=== PATIENT | female | born 1960 | race Caucasian/White ===

== ENCOUNTER → 2022-04-26 | Outpatient (CLI) | payer OTHER | LOC: M RAD 14:37 | PROVIDERS: ATTEND Nurse Practitioner Women's Health | DX: R32 Unspecified urinary incontinence (principal); Z87.440 Personal history of urinary (tract) infections ==

== ENCOUNTER 2023-06-20 16:58 | Inpatient (IN) | payer OTHER ==
[~2023-06-20] VITALS: Ht 160 cm; Wt 75.3 kg
[2023-06-20 18:14] VITALS: BP 142/74; TEMP 98; O2SAT 99
[2023-06-20] MEDS ORDERED: LIDOCAINE 2% 5ML JELLY UROJET TOP ONE (18:20)
[2023-06-20] MEDS ORDERED: NS 500 ML IV ONE (18:20)
[2023-06-20 18:23] LABS: BASO # 0.1 10^3/uL (0.0-0.2); BASO % 0.7 % (0.0-1.0); EOS # 0.4 10^3/uL (0.0-0.5); EOS % 4.3 % (0.0-3.0); HEMOGLOBIN 8.3 g/dl (12.0-15.5); LYMPH # 1.9 10^3/uL (1.5-5.0); LYMPH % 19.9 % (24.0-44.0); MEAN CORPUSCULAR HEMOGLOBIN 29.4 pg (27.0-33.0); MEAN CORPUSCULAR HGB CONC 31.9 g/dl (32.0-36.5); MEAN CORPUSCULAR VOLUME 92.2 fl (80.0-96.0); MONO # 0.5 10^3/uL (0.0-0.8); MONO % 5.4 % (2.0-8.0); NEUTROPHILS # 6.5 10^3/uL (1.5-8.5); NEUTROPHILS % 69.4 % (36.0-66.0); PLATELET COUNT, AUTOMATED 102 10^3/uL (150-450); RED BLOOD COUNT 2.82 10^6/uL (4.00-5.40); WHITE BLOOD COUNT 9.4 10^3/uL (4.0-10.0)
[2023-06-20 18:41] LABS: INR 1.27; PROTHROMBIN TIME 15.5 SECONDS (12.5-14.5)
[2023-06-20 18:42] LABS: PARTIAL THROMBOPLASTIN TIME 29.3 SECONDS (24.8-34.2)
[2023-06-20 18:46] LABS: ALBUMIN 4.1 G/DL (3.2-5.2); ALKALINE PHOSPHATASE 43 U/L (46-116); ALT/SGPT 33 U/L (7.0-40); AST/SGOT 20 U/L (<34); BILIRUBIN,DIRECT 0.1 MG/DL (<0.4); BILIRUBIN,TOTAL 0.3 MG/DL (0.3-1.2); BLOOD UREA NITROGEN 142 MG/DL (9-23); CALCIUM LEVEL 9.5 MG/DL (8.3-10.6); CARBON DIOXIDE LEVEL 25 MMOL/L (20-31); CHLORIDE LEVEL 101 MMOL/L (98-107); CK-MB VALUE MASS < 1.0 NG/ML (<3.6); CPK CREATINE PHOSPHOKINASE 53 U/L (34-145); CREATININE FOR GFR 3.11 MG/DL (0.55-1.30); GLOMERULAR FILTRATION RATE 16.2 (>45); GLUCOSE, FASTING 156 MG/DL (74-106); MB/CK RELATIVE INDEX 1.88 (< OR =4); POTASSIUM SERUM 3.8 MMOL/L (3.5-5.1); SODIUM LEVEL 135 MMOL/L (136-145)
[2023-06-20] MEDS ORDERED: HYDR-3911 PO (19:21)
[2023-06-20] MEDS ORDERED: ASPI-226 PO (19:21)
[2023-06-20] MEDS ORDERED: GABA-1171 PO (19:21)
[2023-06-20] MEDS ORDERED: FERR325T19 PO (19:21)
[2023-06-20] MEDS ORDERED: CARV12.5 PO (19:21)
[2023-06-20] MEDS ORDERED: VALS1TAB66 PO (19:21)
[2023-06-20] MEDS ORDERED: DOXA1TAB40 PO (19:21)
[2023-06-20] MEDS ORDERED: ATOR80TA59 PO (19:21)
[2023-06-20] MEDS ORDERED: FURO40TA2 PO (19:21)
[2023-06-20] MEDS ORDERED: PANT40TA29 PO (19:21)
[2023-06-20] MEDS ORDERED: BASA100I SQ (19:21)
[2023-06-20] MEDS ORDERED: INSUHUMDS SC (19:23)
[2023-06-20 19:34] LABS: CK-MB VALUE MASS < 1.0 NG/ML (<3.6)
[2023-06-20 19:35] LABS: CPK CREATINE PHOSPHOKINASE 56 U/L (34-145); MB/CK RELATIVE INDEX 1.78 (< OR =4)
[2023-06-20 20:45] VITALS: BP 125/53; O2SAT 96
[2023-06-20 21:00] VITALS: O2SAT 98
[2023-06-20 21:01] VITALS: BP 146/86
[2023-06-20 21:15] VITALS: O2SAT 96
[2023-06-20 21:16] VITALS: BP 127/59
[2023-06-20] MEDS ORDERED: GLUCAGON INJ 1MG VIAL SC PRN (23:00)
[2023-06-20] MEDS ORDERED: GLUCOSE 4GM CHEW TABLET PO PRN (23:00)
[2023-06-20] MEDS ORDERED: DEXTROSE 50% 50ML SYRINGE IV PRN (23:00)
[2023-06-21] VITALS (13 sets, daily range): BP systolic 106–184; BP diastolic 50–68; TEMP 96.8–98.8; O2SAT 16–99
[2023-06-21 00:28] LABS: IRON (FE) 70 UG/DL (50-170); PERCENT SATURATION 27.7 % (13.2-45.0); TOTAL IRON BINDING CAPACITY 253 UG/DL (250-425)
[2023-06-21 00:31] LABS: FERRITIN 349.2 NG/ML (7.3-270.7)
[2023-06-21] MEDS: **hydrALAZINE** 10 MG TAB PO SCH ×2 (01:18→04:00)
[2023-06-21 05:40] LABS: HEMATOCRIT 23.8 % (36.0-47.0); HEMOGLOBIN 7.6 g/dl (12.0-15.5); MEAN CORPUSCULAR HGB CONC 31.9 g/dl (32.0-36.5); MEAN CORPUSCULAR VOLUME 90.8 fl (80.0-96.0); RED BLOOD COUNT 2.62 10^6/uL (4.00-5.40)
[2023-06-21] MEDS ORDERED: HEPARIN SOD (PORCINE) 5000UNITS/ML 1ML VIAL/SYRINGE SC SCH (06:00)
[2023-06-21 06:02] LABS: BLOOD UREA NITROGEN 139 MG/DL (9-23); CALCIUM LEVEL 9.7 MG/DL (8.3-10.6); CARBON DIOXIDE LEVEL 26 MMOL/L (20-31); CHLORIDE LEVEL 104 MMOL/L (98-107); CREATININE FOR GFR 2.97 MG/DL (0.55-1.30); GLOMERULAR FILTRATION RATE 17.1 (>45); GLUCOSE, FASTING 113 MG/DL (74-106); POTASSIUM SERUM 3.7 MMOL/L (3.5-5.1); SODIUM LEVEL 139 MMOL/L (136-145)
[2023-06-21 06:17] LABS: PLATELET COUNT, AUTOMATED 86 10^3/uL (150-450)
[2023-06-21 07:22] LABS: PHOSPHORUS LEVEL 4.7 MG/DL (2.4-5.1)
[2023-06-21] MEDS: INSULIN LISPRO (NovoLOG) PER UNIT SC SCH ×4 (07:50→20:15)
[2023-06-21] MEDS ORDERED: DARBEPOETIN 100MCG/0.5ML *NON-DIALYSIS* SYRINGE SC SCH (09:00)
[2023-06-21 09:07] LABS: FOLATE 7.4 NG/ML (>5.4)
[2023-06-21 10:00] LABS: VITAMIN B12 LEVEL > 2000 PG/ML (211-911)
[2023-06-21] MEDS ORDERED: **hydrALAZINE HCL** 25 MG TAB PO PRN (10:10)
[2023-06-21] MEDS: PANTOPRAZOLE 40MG TAB (PROTONIX) PO SCH (10:52)
[2023-06-21] MEDS ORDERED: MOM 30ML SUSPENSION UDC PO PRN (11:15)
[2023-06-21] MEDS ORDERED: SENN8.6T28 PO (11:54)
[2023-06-21] MEDS ORDERED: KETO2CR TOP (11:54)
[2023-06-21] MEDS ORDERED: HYDR-643 PO (11:54)
[2023-06-21] MEDS ORDERED: HOME MED LIST COMPLETE! XX SCH (11:55)
[2023-06-21] MEDS: ASPIRIN 81MG CHEW TABLET PO SCH (13:00)
[2023-06-21] MEDS: DOCUSATE SODIUM 100MG CAPSULE PO SCH (13:00)
[2023-06-21] MEDS: **hydrALAZINE HCL** 25 MG TAB PO SCH ×2 (14:00→20:16)
[2023-06-21] MEDS: NYSTATIN 100,000 UNITS/GM TOPICAL PWD 15GM TOP SCH (18:14)
[2023-06-21 18:27] LABS: HEMATOCRIT 28.8 % (36.0-47.0); HEMOGLOBIN 9.7 g/dl (12.0-15.5)
[2023-06-21] MEDS: GABAPENTIN 100 MG CAP PO SCH (20:16)
[2023-06-21] MEDS: ATORVASTATIN 20 MG TAB PO SCH (20:16)
[2023-06-21] MEDS: DOXAZOSIN MESYLATE 4 MG TAB PO SCH (20:16)
[2023-06-22 03:24] VITALS: BP_SYST 145; BP_SYST 45; BP_DIAS 60; TEMP 97.8; O2SAT 96
[2023-06-22 06:19] LABS: BASO # 0.1 10^3/uL (0.0-0.2); BASO % 0.9 % (0.0-1.0); EOS # 0.5 10^3/uL (0.0-0.5); EOS % 6.3 % (0.0-3.0); HEMATOCRIT 29.9 % (36.0-47.0); HEMOGLOBIN 10.1 g/dl (12.0-15.5); LYMPH # 1.9 10^3/uL (1.5-5.0); LYMPH % 24.5 % (24.0-44.0); MEAN CORPUSCULAR HEMOGLOBIN 29.6 pg (27.0-33.0); MEAN CORPUSCULAR HGB CONC 33.8 g/dl (32.0-36.5); MEAN CORPUSCULAR VOLUME 87.7 fl (80.0-96.0); MONO # 0.6 10^3/uL (0.0-0.8); MONO % 7.2 % (2.0-8.0); NEUTROPHILS # 4.6 10^3/uL (1.5-8.5); NEUTROPHILS % 60.8 % (36.0-66.0); RED BLOOD COUNT 3.41 10^6/uL (4.00-5.40); WHITE BLOOD COUNT 7.6 10^3/uL (4.0-10.0)
[2023-06-22 06:22] LABS: PLATELET COUNT, AUTOMATED 88 10^3/uL (150-450)
[2023-06-22 06:45] LABS: CALCIUM LEVEL 9.7 MG/DL (8.3-10.6); CREATININE FOR GFR 2.69 MG/DL (0.55-1.30); GLOMERULAR FILTRATION RATE 19.2 (>45); MAGNESIUM LEVEL 2.1 MG/DL (1.8-2.4)
[2023-06-22] MEDS: GABAPENTIN 100 MG CAP PO SCH ×2 (08:04→23:43)
[2023-06-22] MEDS: INSULIN LISPRO (NovoLOG) PER UNIT SC SCH ×4 (08:04→21:00)
[2023-06-22] MEDS: DOCUSATE SODIUM 100MG CAPSULE PO SCH (08:04)
[2023-06-22] MEDS: PANTOPRAZOLE 40MG TAB (PROTONIX) PO SCH (08:04)
[2023-06-22] MEDS: ASPIRIN 81MG CHEW TABLET PO SCH (08:05)
[2023-06-22] MEDS: **hydrALAZINE HCL** 25 MG TAB PO SCH ×3 (08:05→23:44)
[2023-06-22] MEDS: NYSTATIN 100,000 UNITS/GM TOPICAL PWD 15GM TOP SCH (08:06)
[2023-06-22 08:13] LABS: POTASSIUM SERUM 4.3 MMOL/L (3.5-5.1)
[2023-06-22 08:39] VITALS: BP 170/68; TEMP 97.9; O2SAT 97
[2023-06-22 10:45] VITALS: BP 140/88; TEMP 98.5; O2SAT 97
[2023-06-22] MEDS: HEPARIN SOD (PORCINE) 5000UNITS/ML 1ML VIAL/SYRINGE SQ SCH ×2 (11:02→23:42)
[2023-06-22] MEDS: FUROSEMIDE 40 MG TAB PO SCH (12:45)
[2023-06-22] MEDS ORDERED: BISACODYL 10MG SUPP PR ONE (15:10)
[2023-06-22] MEDS ORDERED: ACETAMINOPHEN TAB 650MG DOSE (2X325MG) PO PRN (15:45)
[2023-06-22] MEDS: MIRALAX *UNIT DOSE* 17GM PACKET PO SCH (17:40)
[2023-06-22 19:47] VITALS: BP 120/51; TEMP 96.8; O2SAT 98
[2023-06-22 23:32] VITALS: BP 160/52; TEMP 96.6; O2SAT 96
[2023-06-22] MEDS: SENOKOT S TAB PO SCH (23:33)
[2023-06-22] MEDS: ATORVASTATIN 20 MG TAB PO SCH (23:43)
[2023-06-22] MEDS: DOXAZOSIN MESYLATE 4 MG TAB PO SCH (23:44)
[2023-06-23 04:00] VITALS: BP 128/58; TEMP 97.2; O2SAT 94
[2023-06-23 07:57] VITALS: BP 141/54; TEMP 97.4; O2SAT 95
[2023-06-23 08:27] LABS: CALCIUM LEVEL 9.2 MG/DL (8.3-10.6); CREATININE FOR GFR 2.54 MG/DL (0.55-1.30); GLOMERULAR FILTRATION RATE 20.5 (>45); POTASSIUM SERUM 4.2 MMOL/L (3.5-5.1)
[2023-06-23] MEDS: PANTOPRAZOLE 40MG TAB (PROTONIX) PO SCH (08:59)
[2023-06-23] MEDS: INSULIN LISPRO (NovoLOG) PER UNIT SC SCH (08:59)
[2023-06-23] MEDS: HEPARIN SOD (PORCINE) 5000UNITS/ML 1ML VIAL/SYRINGE SQ SCH (08:59)
[2023-06-23 09:01] VITALS: BP 141/53
[2023-06-23] MEDS: **hydrALAZINE HCL** 25 MG TAB PO SCH (09:02)
[2023-06-23] MEDS: FUROSEMIDE 40 MG TAB PO SCH (09:02)
[2023-06-23] MEDS: SENOKOT S TAB PO SCH (09:02)
[2023-06-23] MEDS: ASPIRIN 81MG CHEW TABLET PO SCH (09:02)
[2023-06-23] MEDS: NYSTATIN 100,000 UNITS/GM TOPICAL PWD 15GM TOP SCH (09:03)
[2023-06-23] MEDS: GABAPENTIN 100 MG CAP PO SCH (09:03)
[2023-06-23] MEDS: MIRALAX *UNIT DOSE* 17GM PACKET PO SCH (09:04)
[2023-06-23] MEDS ORDERED: NYST1POW9 TOP (10:02)
[2023-06-23] MEDS ORDERED: AMLO1TAB25 PO (10:02)
[2023-06-23] MEDS ORDERED: HYDR25TA PO ×2 (10:02→10:03)
== END 2023-06-23 13:25 | disposition home health service (06) | DRG 683 ==
LOC: M ED 16:58 → M ED INP 23:04 → M PCU 06-21 00:52
PROVIDERS: ADMIT Internal Medicine; ATTEND Internal Medicine
PROC: 30233N1 Transfusion of Nonautologous Red Blood Cells into Peripheral Vein, Percutaneous Approach (ICD-10-PCS; principal; 2023-06-21)
DX: N17.9 Acute kidney failure, unspecified (principal); I69.351 Hemiplegia and hemiparesis following cerebral infarction affecting right dominant side; I13.0 Hypertensive heart and chronic kidney disease with heart failure and stage 1 through stage 4 chronic kidney disease, or unspecified chronic kidney disease; E11.22 Type 2 diabetes mellitus with diabetic chronic kidney disease; D63.1 Anemia in chronic kidney disease; N18.30 Chronic kidney disease, stage 3 unspecified; E11.42 Type 2 diabetes mellitus with diabetic polyneuropathy; L29.9 Pruritus, unspecified; I50.9 Heart failure, unspecified; R13.10 Dysphagia, unspecified; R00.1 Bradycardia, unspecified; K21.9 Gastro-esophageal reflux disease without esophagitis; I44.0 Atrioventricular block, first degree; D69.6 Thrombocytopenia, unspecified; R33.9 Retention of urine, unspecified; F41.9 Anxiety disorder, unspecified; K59.00 Constipation, unspecified; L89.152 Pressure ulcer of sacral region, stage 2; Z79.82 Long term (current) use of aspirin; Z79.4 Long term (current) use of insulin; Z79.899 Other long term (current) drug therapy; Z88.0 Allergy status to penicillin; Z88.5 Allergy status to narcotic agent; Z88.1 Allergy status to other antibiotic agents; Z20.822 Contact with and (suspected) exposure to COVID-19; Z90.79 Acquired absence of other genital organ(s); Z99.3 Dependence on wheelchair

== ENCOUNTER → 2023-10-31 | Outpatient (REF) | payer OTHER ==
[~2023-10-31] MED LIST: AMLO1TAB25 PO; ASPI-226 PO; ATOR80TA59 PO; BASA100I SQ; CARV12.5 PO; DOXA1TAB40 PO; FERR325T19 PO; FURO40TA2 PO; GABA-1171 PO; HYDR-643 PO; HYDR25TA88 PO; HYDR50TA46 PO; INSUHUMDS SC; KETO2CR TOP; NYST1POW9 TOP; PANT40TA29 PO; SENN8.6T28 PO; VALS1TAB66 PO
[2023-10-31 18:49] LABS: PERCENT SATURATION 18.2 % (13.2-45.0)
== END ==
LOC: M LAB REF 17:17
PROVIDERS: ATTEND Internal Medicine Nephrology
DX: D50.9 Iron deficiency anemia, unspecified (principal)

== ENCOUNTER → 2023-12-11 | Outpatient (CLI) | payer OTHER ==
[~2023-12-11] VITALS: Ht 160 cm; Wt 85.4 kg
[~2023-12-11] MED LIST changes: +ALBUTEROL SULFATE 2.5MG/0.5ML INH NEB SOLN INH PRN; +AMLO1TAB24 PO; +EPINEPHrine INJ 1 MG/ML 1ML AMP IM PRN; +HYDR100T PO; +NS 1,000 ML IV SCH; +SERT50TA29 PO; +diphenhydrAMINE 50MG/ML VIAL IV PRN; +methylPREDNISolone 125MG 2ML VIAL IV PRN
[2023-12-11] MEDS: IRON SUCROSE 500 MG in NS 250 ML OVER 4 HRS IV ONE (10:14)
[2023-12-11 10:20] VITALS: BP 158/62; O2SAT 98
[2023-12-11 11:30] VITALS: BP 160/80; O2SAT 97
[2023-12-11 12:30] VITALS: BP 168/60; O2SAT 95
[2023-12-11 13:30] VITALS: BP 157/71; O2SAT 96
[2023-12-11 14:30] VITALS: BP 168/78; O2SAT 95
== END ==
LOC: M INFU 09:42
PROVIDERS: ATTEND Internal Medicine Nephrology
DX: D50.9 Iron deficiency anemia, unspecified (principal); Z88.1 Allergy status to other antibiotic agents; Z88.5 Allergy status to narcotic agent; Z88.8 Allergy status to other drugs, medicaments and biological substances
CPT/HCPCS: 96365; 96366; J1756

== ENCOUNTER → 2024-02-01 | Outpatient (REF) | payer OTHER ==
[~2024-02-01] MED LIST changes: -ALBUTEROL SULFATE 2.5MG/0.5ML INH NEB SOLN INH PRN; -EPINEPHrine INJ 1 MG/ML 1ML AMP IM PRN; -NS 1,000 ML IV SCH; -diphenhydrAMINE 50MG/ML VIAL IV PRN; -methylPREDNISolone 125MG 2ML VIAL IV PRN
[2024-02-01 18:07] LABS: PERCENT SATURATION 22.8 % (13.2-45.0)
== END ==
LOC: M LAB REF 17:07
PROVIDERS: ATTEND Internal Medicine Nephrology
DX: D50.9 Iron deficiency anemia, unspecified (principal)

== ENCOUNTER 2024-02-11 13:57 | Emergency (ER) | payer OTHER ==
[~2024-02-11 13:57] MED LIST changes: -ALBUTEROL SULFATE 2.5MG/0.5ML INH NEB SOLN INH PRN; -EPINEPHrine INJ 1 MG/ML 1ML AMP IM PRN; -IRON SUCROSE 400 MG in NS 250 ML OVER 2.5 HRS IV ONE; -NS 1,000 ML IV SCH; -diphenhydrAMINE 50MG/ML VIAL IV PRN; -methylPREDNISolone 125MG 2ML VIAL IV PRN
[2024-02-11 14:13] VITALS: TEMP 97.2
[2024-02-11 14:57] VITALS: BP 195/79; O2SAT 97
== END 2024-02-11 15:43 | disposition home or self-care (01) ==
LOC: M ED 13:57
DX: D50.9 Iron deficiency anemia, unspecified (principal); I10 Essential (primary) hypertension; E11.9 Type 2 diabetes mellitus without complications; N18.30 Chronic kidney disease, stage 3 unspecified; G47.33 Obstructive sleep apnea (adult) (pediatric); Z86.79 Personal history of other diseases of the circulatory system; Z86.73 Personal history of transient ischemic attack (TIA), and cerebral infarction without residual deficits; Z88.0 Allergy status to penicillin; Z88.1 Allergy status to other antibiotic agents; Z88.5 Allergy status to narcotic agent; Z79.82 Long term (current) use of aspirin; Z79.899 Other long term (current) drug therapy; Z79.02 Long term (current) use of antithrombotics/antiplatelets

== ENCOUNTER 2024-02-11 15:39 | Outpatient (CLI) | payer OTHER ==
[~2024-02-11 15:39] MED LIST changes: +ALBUTEROL SULFATE 2.5MG/0.5ML INH NEB SOLN INH PRN; +EPINEPHrine INJ 1 MG/ML 1ML AMP IM PRN; +diphenhydrAMINE 50MG/ML VIAL IV PRN; +methylPREDNISolone 125MG 2ML VIAL IV PRN
[2024-02-11 15:49] VITALS: BP 168/62; O2SAT 94
[2024-02-11] MEDS: IRON SUCROSE 400 MG in NS 250 ML OVER 2.5 HRS IV ONE (15:54)
[2024-02-11] MEDS: NS 1,000 ML IV SCH (15:55)
[2024-02-11 17:16] VITALS: BP 159/62; O2SAT 95
[2024-02-11 20:21] VITALS: BP 150/60; O2SAT 96
== END 2024-02-11 20:15 | disposition home or self-care (01) ==
LOC: M MS5PR 15:39 → M OPCLI5PR 15:39
PROVIDERS: ATTEND Internal Medicine Nephrology
DX: D50.9 Iron deficiency anemia, unspecified (principal); Z88.0 Allergy status to penicillin; Z88.1 Allergy status to other antibiotic agents; Z88.5 Allergy status to narcotic agent
CPT/HCPCS: 96365; 96366; J1756

== ENCOUNTER → 2024-02-11 | Outpatient (CLI) | payer OTHER ==
[~2024-02-11] VITALS: Ht 160 cm; Wt 85.5 kg
[~2024-02-11] MED LIST changes: +ALBUTEROL SULFATE 2.5MG/0.5ML INH NEB SOLN INH PRN; +EPINEPHrine INJ 1 MG/ML 1ML AMP IM PRN; +IRON SUCROSE 400 MG in NS 250 ML OVER 2.5 HRS IV ONE; +NS 1,000 ML IV SCH; +PROC20004 SQ; +diphenhydrAMINE 50MG/ML VIAL IV PRN; +methylPREDNISolone 125MG 2ML VIAL IV PRN
[2024-02-11 11:25] VITALS: BP 212/106; O2SAT 96
[2024-02-11 12:00] VITALS: BP 202/60; O2SAT 97
[2024-02-11] MEDS: FUROSEMIDE 40MG/4ML VIAL IV ONE (12:24)
[2024-02-11 12:30] VITALS: BP 200/60; O2SAT 96
[2024-02-11 13:20] VITALS: BP 197/52; O2SAT 96
== END ==
LOC: M INFU 11:21
PROVIDERS: ATTEND Internal Medicine Nephrology
DX: D50.9 Iron deficiency anemia, unspecified (principal); Z88.0 Allergy status to penicillin; Z88.1 Allergy status to other antibiotic agents; Z88.5 Allergy status to narcotic agent
CPT/HCPCS: 96374; J1940

== ENCOUNTER 2024-03-17 11:00 | Outpatient (CLI) | payer OTHER ==
[~2024-03-17] VITALS: Ht 160 cm; Wt 85.5 kg
[2024-03-17 11:00] VITALS: BP 178/60; O2SAT 96
[~2024-03-17 11:00] MED LIST changes: +NS 1,000 ML IV SCH
[2024-03-17] MEDS: IRON SUCROSE 400 MG in NS 250 ML OVER 2.5 HRS IV ONE (11:50)
[2024-03-17 14:45] VITALS: BP 176/60; O2SAT 96
== END 2024-03-17 14:45 ==
LOC: M INFU 11:00
PROVIDERS: ATTEND Internal Medicine Nephrology
DX: D50.9 Iron deficiency anemia, unspecified (principal); Z88.0 Allergy status to penicillin; Z88.1 Allergy status to other antibiotic agents; Z88.5 Allergy status to narcotic agent
CPT/HCPCS: 96365; 96366; J1756

== ENCOUNTER → 2024-04-30 | Outpatient (REF) | payer OTHER ==
[~2024-04-30] MED LIST changes: -ALBUTEROL SULFATE 2.5MG/0.5ML INH NEB SOLN INH PRN; -EPINEPHrine INJ 1 MG/ML 1ML AMP IM PRN; -NS 1,000 ML IV SCH; -diphenhydrAMINE 50MG/ML VIAL IV PRN; -methylPREDNISolone 125MG 2ML VIAL IV PRN
[2024-04-30 18:34] LABS: PERCENT SATURATION 19.5 % (13.2-45.0)
== END ==
LOC: M LAB REF 17:25
PROVIDERS: ATTEND Internal Medicine Nephrology
DX: D50.9 Iron deficiency anemia, unspecified (principal)

== ENCOUNTER 2024-05-21 08:20 | Outpatient (CLI) | payer OTHER ==
[~2024-05-21] VITALS: Ht 160 cm; Wt 81.2 kg
[2024-05-21 08:20] VITALS: BP 132/72; O2SAT 96
[~2024-05-21 08:20] MED LIST changes: +NYST1POW3 TOP; -NYST1POW9 TOP
[2024-05-21] MEDS ORDERED: NS 1,000 ML IV SCH (08:30)
[2024-05-21] MEDS: IRON SUCROSE 500 MG in NS 250 ML OVER 4 HRS IV ONE (08:52)
[2024-05-21 10:00] VITALS: BP 163/68; O2SAT 95
[2024-05-21 11:00] VITALS: BP 170/87; O2SAT 97
[2024-05-21 13:11] VITALS: BP 138/78; O2SAT 95
== END 2024-05-21 13:15 ==
LOC: M INFU 08:20
PROVIDERS: ATTEND Internal Medicine Nephrology
DX: D50.9 Iron deficiency anemia, unspecified (principal); Z88.0 Allergy status to penicillin; Z88.1 Allergy status to other antibiotic agents; Z88.5 Allergy status to narcotic agent
CPT/HCPCS: 96365; 96366; J1756

== ENCOUNTER → 2024-07-30 | Outpatient (CLI) | payer OTHER ==
[~2024-07-30] VITALS: Ht 160 cm; Wt 80.0 kg
[~2024-07-30] MED LIST changes: +ALBUTEROL SULFATE 2.5MG/0.5ML INH NEB SOLN INH PRN; +EPINEPHrine INJ 1 MG/ML 1ML AMP IM PRN; +NS (Normal Saline) 0.9% 1,000 ML IV SCH; +diphenhydrAMINE 50MG/ML VIAL IV PRN; +methylPREDNISolone 125MG 2ML VIAL IV PRN
[2024-07-30 11:20] VITALS: BP 147/58; O2SAT 97
[2024-07-30] MEDS: IRON SUCROSE 400 MG in NS 250 ML OVER 2.5 HRS IV ONE (11:30)
[2024-07-30 14:07] VITALS: BP 160/54; O2SAT 99
== END ==
LOC: M INFU 11:05
PROVIDERS: ATTEND Internal Medicine Nephrology
DX: D50.9 Iron deficiency anemia, unspecified (principal); Z88.0 Allergy status to penicillin; Z88.1 Allergy status to other antibiotic agents; Z88.5 Allergy status to narcotic agent
CPT/HCPCS: 96365; 96366; J1756

== ENCOUNTER 2024-08-13 11:01 | Outpatient (CLI) | payer OTHER ==
[~2024-08-13] VITALS: Ht 162.6 cm; Wt 79.0 kg
[2024-08-13 11:10] VITALS: BP 158/66; O2SAT 97
[2024-08-13] MEDS: IRON SUCROSE 400 MG in NS 250 ML OVER 2.5 HRS IV ONE (11:58)
[2024-08-13 14:33] VITALS: BP 158/68; O2SAT 97
== END 2024-08-13 14:40 ==
LOC: M INFU 11:01
PROVIDERS: ATTEND Internal Medicine Nephrology
DX: D50.9 Iron deficiency anemia, unspecified (principal); Z88.0 Allergy status to penicillin; Z88.1 Allergy status to other antibiotic agents; Z88.5 Allergy status to narcotic agent
CPT/HCPCS: 96365; 96366; J1756

== ENCOUNTER → 2024-09-24 | Outpatient (REF) | payer OTHER ==
[~2024-09-24] MED LIST changes: -ALBUTEROL SULFATE 2.5MG/0.5ML INH NEB SOLN INH PRN; -EPINEPHrine INJ 1 MG/ML 1ML AMP IM PRN; -NS (Normal Saline) 0.9% 1,000 ML IV SCH; -diphenhydrAMINE 50MG/ML VIAL IV PRN; -methylPREDNISolone 125MG 2ML VIAL IV PRN
[2024-09-24 17:41] LABS: PERCENT SATURATION 19.2 % (13.2-45.0)
== END ==
LOC: M LAB REF 17:13
PROVIDERS: ATTEND Internal Medicine Nephrology
DX: D50.9 Iron deficiency anemia, unspecified (principal)

== ENCOUNTER 2024-10-20 10:58 | Outpatient (CLI) | payer OTHER ==
[~2024-10-20] VITALS: Ht 160 cm; Wt 77.2 kg
[~2024-10-20 10:58] MED LIST changes: +ALBUTEROL SULFATE 2.5MG/0.5ML INH CONCENTRATE NEB SOLN INH PRN; +EPINEPHrine INJ 1 MG/ML 1ML AMP IM PRN; +NS (Normal Saline) 0.9% 1,000 ML IV SCH; +diphenhydrAMINE 50MG/ML VIAL IV PRN; +methylPREDNISolone 125MG 2ML VIAL IV PRN
[2024-10-20 11:05] VITALS: BP 118/53; O2SAT 98
[2024-10-20] MEDS: IRON SUCROSE 400 MG in NS 250 ML OVER 2.5 HRS IV ONE (11:17)
[2024-10-20 13:55] VITALS: BP 158/70; O2SAT 96
== END 2024-10-20 14:00 | disposition home or self-care (01) ==
LOC: M INFU 10:58
PROVIDERS: ATTEND Internal Medicine Nephrology
DX: D50.9 Iron deficiency anemia, unspecified (principal); Z88.0 Allergy status to penicillin; Z88.1 Allergy status to other antibiotic agents; Z88.5 Allergy status to narcotic agent
CPT/HCPCS: 96365; 96366; J1756

== ENCOUNTER 2024-11-03 11:19 | Outpatient (CLI) | payer OTHER ==
[~2024-11-03] VITALS: Ht 160 cm; Wt 77.3 kg
[~2024-11-03 11:19] MED LIST changes: -NS (Normal Saline) 0.9% 1,000 ML IV SCH
[2024-11-03 11:45] VITALS: BP 152/60; O2SAT 98
[2024-11-03] MEDS: IRON SUCROSE 400 MG in NS 250 ML OVER 2.5 HRS IV ONE (12:34)
[2024-11-03 15:20] VITALS: BP 164/60; O2SAT 98
== END 2024-11-03 15:25 | disposition home or self-care (01) ==
LOC: M INFU 11:19
PROVIDERS: ATTEND Internal Medicine Nephrology
DX: D50.9 Iron deficiency anemia, unspecified (principal); Z88.0 Allergy status to penicillin; Z88.1 Allergy status to other antibiotic agents; Z88.5 Allergy status to narcotic agent
CPT/HCPCS: 96365; 96366; J1756

== ENCOUNTER → 2025-03-27 | Outpatient (CLI) | payer OTHER ==
[~2025-03-27] MED LIST changes: -ALBUTEROL SULFATE 2.5MG/0.5ML INH CONCENTRATE NEB SOLN INH PRN; +DOCU100C16 PO; -EPINEPHrine INJ 1 MG/ML 1ML AMP IM PRN; +FAMO1TAB11 PO; +FLON1SPR; +ISOVUE-370 76% 100 ML VIAL As Ordered ONE; +LOSA25TA13 PO; +ONDA-282 PO; +POTA-151 PO; +SENN8.6T58 PO; -diphenhydrAMINE 50MG/ML VIAL IV PRN; -methylPREDNISolone 125MG 2ML VIAL IV PRN
== END ==
LOC: M RAD 12:40
PROVIDERS: ATTEND Internal Medicine Nephrology
DX: I70.1 Atherosclerosis of renal artery (principal); I15.0 Renovascular hypertension; I70.0 Atherosclerosis of aorta; J98.11 Atelectasis; J84.10 Pulmonary fibrosis, unspecified
CPT/HCPCS: 74175; Q9967